=== PATIENT | male | born 1990 | race Caucasian/White ===

== ENCOUNTER 2023-03-25 18:16 | Emergency (ER) | payer OTHER ==
[~2023-03-25] VITALS: Ht 177.8 cm; Wt 81.6 kg
[2023-03-25 18:17] VITALS: BP 106/66; PULSE 68; RESP 15; TEMP 98; O2SAT 97
[2023-03-25] MEDS ORDERED: IBUP-2213 PO (18:35)
[2023-03-25] MEDS ORDERED: FLONAS NS (18:35)
[2023-03-25] MEDS ORDERED: AMOX-1230 PO (18:35)
== END 2023-03-25 18:41 | disposition home or self-care (01) ==
LOC: MED 18:16
DX: J32.9 Chronic sinusitis, unspecified (principal); Z79.899 Other long term (current) drug therapy; Z79.1 Long term (current) use of non-steroidal anti-inflammatories (NSAID); Z79.2 Long term (current) use of antibiotics
CPT/HCPCS: 99283

== ENCOUNTER 2023-06-17 18:04 | Emergency (ER) | payer OTHER ==
[~2023-06-17] VITALS: Ht 180.3 cm; Wt 81.6 kg
[~2023-06-17 18:04] MED LIST: AMOX-1230 PO; FLONAS NS; IBUP-2213 PO
[2023-06-17 18:21] VITALS: BP 128/58; PULSE 78; RESP 19; TEMP 99.6; O2SAT 98
[2023-06-17 20:26] VITALS: BP 137/66; PULSE 68; RESP 19; TEMP 98; O2SAT 98
[2023-06-17] MEDS ORDERED: AMOX-1230 PO (20:58)
[2023-06-17] MEDS ORDERED: CETI-24 PO (20:58)
[2023-06-17] MEDS ORDERED: FLONAS NS (20:58)
== END 2023-06-17 21:02 | disposition home or self-care (01) ==
LOC: MED 18:04
DX: J32.9 Chronic sinusitis, unspecified (principal); Z79.899 Other long term (current) drug therapy
CPT/HCPCS: 99283